=== PATIENT | female | born 1990 | race Caucasian/White ===

== ENCOUNTER → 2016-12-05 | Outpatient (CLI) | payer BC ==
[~2016-12-05] MED LIST: ACET500C PO; FOLITAB5 PO; IBUP-1022 PO; PREN1CAP9 PO; RANI15TA PO
--- NOTE | 2016-12-05 14:49 | REP ---
PELVIC SONOGRAPHY: HISTORY: Check IUD placement. Bicornuate uterus. FINDINGS: Transabdominal and transvaginal scanning are performed. Uterine dimensions are 7.1 x 3.7 x 4.7 cm. Endometrial echo on the right is 0.3 and on the left 0.4 cm. There is a tiny endometrial echogenic focus consistent with a calcification to the left of midline. No IUD is visible in the endometrium. There is a simple cyst in the right ovary measures 3.2 x 1.8 x 2.2 cm. Right ovary dimensions are 3.9 x 2.2 x 3.0 cm. Left ovary measures 3.7 x 1.1 x 1.3 cm. Normal Doppler flow is seen in both ovaries. IMPRESSION: 1. Bicornuate uterus. No IUD seen within it. 2. 3.2 cm simple cyst right ovary. 3. Trace amount of cul-de-sac fluid. Signed by James Manuel MD 12/05/2016 03:08 P
--- NOTE | 2016-12-05 14:57 | REP ---
KUB: Two views. History: Check for intrauterine device. Findings: Bowel gas pattern is normal. An IUD is visible tilted to the left of midline within the pelvis. This could not be seen on pelvic sonography. This raises the question of peritoneal IUD position. Consider CT study of the pelvis. No other abnormality. Signed by James Manuel MD 12/05/2016 03:08 P
== END ==
LOC: M SMT 09:04
PROVIDERS: ATTEND Advanced Practice Midwife
DX: Z30.431 Encounter for routine checking of intrauterine contraceptive device (principal); N83.201 Unspecified ovarian cyst, right side

== ENCOUNTER 2016-12-06 13:40 | Day surgery (SDC) | payer BC ==
[~2016-12-06 13:40] MED LIST changes: -FOLITAB5 PO
[2016-12-06] MEDS ORDERED: FOLITAB5 PO (14:16)
[2016-12-06 14:52] LABS: MEAN CORPUSCULAR HEMOGLOBIN 34.3 pg (27.0-33.0); MEAN CORPUSCULAR HGB CONC 34.9 g/dl (32.0-36.5); MEAN CORPUSCULAR VOLUME 98.2 fl (80.0-96.0); RED CELL DISTRIBUTION WIDTH 12.7 % (11.5-14.5); WHITE BLOOD COUNT 6.6 K/mm3 (4.0-10.0)
[2016-12-06 15:12] LABS: CONTROL LINE HCG INT CTR LINE PRESENT
[2016-12-06] MEDS ORDERED: NEOSTIGMINE 1MG/ML 5 ML SYRINGE (J2710) As Ordered ONE (16:20)
[2016-12-06] MEDS ORDERED: fentaNYL 100 MCG/2 ML INJECTION (J3010) As Ordered ONE (16:20)
[2016-12-06] MEDS ORDERED: MIDAZOLAM INJ 2 MG/2 ML VIAL (J2250) As Ordered ONE (16:20)
[2016-12-06] MEDS ORDERED: PROPOFOL 200 MG/20 ML VIAL As Ordered ONE (16:20)
[2016-12-06] MEDS ORDERED: LIDOCAINE 2% INJ 100 MG/5 ML SDV (FOR ANES.) As Ordered ONE (16:20)
[2016-12-06] MEDS ORDERED: GLYCOPYRROLATE INJ 0.2 MG/ML 2 ML VIAL As Ordered ONE (16:20)
[2016-12-06] MEDS ORDERED: ONDANSETRON 4MG/2ML VIAL (J2405) As Ordered ONE (16:20)
[2016-12-06] MEDS ORDERED: ROCURONIUM BROMIDE 50 MG/5 ML VIAL/SYRINGE As Ordered ONE (16:20)
[2016-12-06] MEDS ORDERED: BUPIVACAINE HCL 0.25% 30 ML VIAL As Ordered ONE (16:27)
[2016-12-06] MEDS ORDERED: SCOPOLAMINE 1.5 MG TRANSDERMAL As Ordered ONE (16:29)
[2016-12-06] MEDS ORDERED: SCOPOLAMINE 1.5 MG TRANSDERMAL TOP ONE (16:45)
[2016-12-06] MEDS ORDERED: LR 1,000 ML IV ONE ×2 (16:45)
[2016-12-06] MEDS ORDERED: dexameTHASONE 4 MG/ML 1ML VIAL (J1100) As Ordered ONE (17:51)
[2016-12-06] MEDS ORDERED: ONDANSETRON 4MG/2ML VIAL (J2405) IV PRN (18:15)
[2016-12-06] MEDS ORDERED: LR 1,000 ML IV SCH (18:15)
[2016-12-06] MEDS ORDERED: fentaNYL 100 MCG/2 ML INJECTION (J3010) IV PRN (18:15)
[2016-12-06] MEDS ORDERED: PERCOCET 5MG/325MG TAB PO PRN (18:15)
--- NOTE | 2016-12-06 18:21 | RO ---
DATE OF PROCEDURE: 12/06/2016 PREPROCEDURE DIAGNOSIS: Misplaced intrauterine device (IUD). POSTPROCEDURE DIAGNOSIS: Misplaced intrauterine device (IUD). PROCEDURE: Diagnostic operative laparoscopy with intraabdominal IUD removal. SURGEON: Selam Newton MD PLASTIC EXTRUDING MACHINE OPERATOR: Lee Guzmán DO ANESTHESIA: General endotracheal anesthesia. ESTIMATED BLOOD LOSS: 5 mL. INTRAVENOUS FLUIDS: 1200 mL of lactated Ringer's solution. URINE OUTPUT: 25 mL. OPERATIVE FINDINGS: IUD in the posterior cul-de-sac. Normal appearing bilateral adnexa. Uterus with normal exterior contour. DESCRIPTION OF PROCEDURE: After informed consent was obtained and written consent was reviewed, the patient was brought to the operating room where general endotracheal anesthesia was obtained. She was then placed in the lithotomy position and was prepped and draped in a normal sterile fashion. A time-out in the operating room was then performed, identifying the patient, procedure to be performed, as well as drug allergies. [place]out speculum was then placed revealing the cervix. The anterior lip of the cervix was grasped with a single-tooth tenaculum. A [place] tenaculum was then advanced through the cervical os for means to manipulate the uterus. A Gregory catheter was then placed and set to gravity. Speculum and single-tooth tenaculum was then removed, gloves were changed and attention was turned to the patient's abdomen where a 0.25% Marcaine was then infused in the infraumbilical region. An incision was made in this area, and a 5 mm trocar and sleeve was advanced through this incision. The laparoscope was then replaced revealing intraabdominal placement. A pneumoperitoneum was then obtained with CO2 gas. The abdomen was then surveyed with the above noted findings. There was normal pelvic anatomy to include the appendix, liver edge, the uterus and bilateral adnexa. The intrauterine device was identified in the posterior cul-de-sac. A second incision was then made 2 cm above the pubic symphysis in the midline. This area was infused with 0.25% Marcaine. Incision was made and the 5 mm trocar and sleeve was advanced through this incision under direct visualization. The IUD was then grasped and was removed without any difficulty through the port site. The area was inspected and noted to be hemostatic. The pneumoperitoneum was then released, trocars were removed. Both incisions were then closed with #4-0 Monocryl and was dressed with Dermabond. The Hulka tenaculum was then removed and tenaculum sites were inspected and noted to be hemostatic. Gregory catheter was removed and the patient was then taken out of the lithotomy position, was awakened from general anesthesia and taken to recovery in stable condition. Counts were correct.
[2016-12-06 19:45] VITALS: BP 120/70
== END 2016-12-06 20:10 | disposition home or self-care (01) ==
LOC: M SDC 13:40
PROVIDERS: ATTEND Obstetrics & Gynecology
DX: T83.39XA Other mechanical complication of intrauterine contraceptive device, initial encounter (principal)
CPT/HCPCS: 36415; 49329; 84703; 85027; 86850; 86900; 86901; J1100; J2250; J2405; J2710; J3010

== ENCOUNTER → 2017-03-27 | Outpatient (CLI) | payer BC ==
[~2017-03-27] MED LIST changes: +FOLITAB5 PO
== END ==
LOC: M SMT 11:13
PROVIDERS: ATTEND Advanced Practice Midwife
DX: O20.0 Threatened abortion (principal); Z3A.00 Weeks of gestation of pregnancy not specified
CPT/HCPCS: 36415; 86850; 86900; 86901; J2790

== ENCOUNTER → 2017-04-14 | Outpatient (CLI) | payer BC ==
[2017-04-14 17:52] LABS: MEAN CORPUSCULAR HEMOGLOBIN 32.6 pg (27.0-33.0); MEAN CORPUSCULAR HGB CONC 34.6 g/dl (32.0-36.5); MEAN CORPUSCULAR VOLUME 94.2 fl (80.0-96.0); PLATELET COUNT, AUTOMATED 287 10^3/uL (150-450); RED CELL DISTRIBUTION WIDTH 12.8 % (11.5-14.5); WHITE BLOOD COUNT 10.1 10^3/uL (4.0-10.0)
[2017-04-14 18:25] LABS: ALT/SGPT 31 U/L (12-78); AST/SGOT 24 U/L (7-37); BILIRUBIN,TOTAL 0.4 MG/DL (0.2-1.0); CREATININE FOR GFR 0.41 MG/DL (0.55-1.02); GLOMERULAR FILTRATION RATE > 60.0 (>60); URIC ACID 3.4 MG/DL (2.6-6.0)
== END ==
LOC: M SMT 12:40
DX: O30.042 Twin pregnancy, dichorionic/diamniotic, second trimester (principal)
CPT/HCPCS: 84460

== ENCOUNTER → 2017-07-12 | Outpatient (CLI) | payer BC ==
[2017-07-12 10:40] LABS: BASO % 0.4 % (0.0-1.0); EOS # 0.1 10^3/uL (0.0-0.50); EOS % 0.5 % (0.0-3.0); HEMATOCRIT 31.8 % (36.0-47.0); HEMOGLOBIN 10.5 g/dl (12.0-16.0); IMMATURE GRANULOCYTE % 0.8 % (0-3.0); LYMPH # 1.9 10^3/uL (1.5-6.5); LYMPH % 16.9 % (24.0-44.0); MEAN CORPUSCULAR HEMOGLOBIN 31.3 pg (27.0-33.0); MEAN CORPUSCULAR VOLUME 94.6 fl (80.0-96.0); MONO # 0.9 10^3/uL (0.0-0.8); MONO % 8.1 % (0.0-5.0); NEUTROPHILS # 8.2 10^3/uL (1.8-7.7); NEUTROPHILS % 73.3 % (36.0-66.0); PLATELET COUNT, AUTOMATED 242 10^3/uL (150-450); RED BLOOD COUNT 3.36 10^6/uL (4.00-5.40); RED CELL DISTRIBUTION WIDTH 12.7 % (11.5-14.5); WHITE BLOOD COUNT 11.2 10^3/uL (4.0-10.0)
[2017-07-12 11:13] LABS: GLUCOSE CHALLENGE TEST 1 HOUR 104 MG/DL (LESS THAN 140)
[2017-07-13 08:43] LABS: RH ONLY RHOGAM 1 1
== END ==
LOC: M SMT 08:09
DX: Z36.89 Encounter for other specified antenatal screening (principal); O30.042 Twin pregnancy, dichorionic/diamniotic, second trimester; Z3A.00 Weeks of gestation of pregnancy not specified
CPT/HCPCS: 82950

== ENCOUNTER → 2017-08-02 | Outpatient (CLI) | payer BC | LOC: M SMT 07:58 | DX: O30.043 Twin pregnancy, dichorionic/diamniotic, third trimester (principal) ==

== ENCOUNTER → 2017-08-23 | Outpatient (CLI) | payer BC | LOC: M SMT 08:58 | DX: O30.043 Twin pregnancy, dichorionic/diamniotic, third trimester (principal); Z3A.33 33 weeks gestation of pregnancy | CPT/HCPCS: 76815 ==

== ENCOUNTER → 2017-08-31 | Outpatient (REF) | payer BC | LOC: M LAB REF 13:27 | DX: O30.043 Twin pregnancy, dichorionic/diamniotic, third trimester (principal) | CPT/HCPCS: 87081 ==

== ENCOUNTER → 2017-09-04 | Outpatient (REF) | payer BC ==
[2017-09-04 19:11] LABS: TOTAL PROTEIN,RANDOM URINE 24.3 MG/DL (0.0-12.0)
== END ==
LOC: M LAB REF 17:12
DX: O30.043 Twin pregnancy, dichorionic/diamniotic, third trimester (principal)

== ENCOUNTER → 2017-09-04 | Outpatient (CLI) | payer BC ==
[2017-09-04 14:06] LABS: HEMOGLOBIN 10.1 g/dl (12.0-15.5); MEAN CORPUSCULAR HEMOGLOBIN 29.3 pg (27.0-33.0); MEAN CORPUSCULAR HGB CONC 32.6 g/dl (32.0-36.5); MEAN CORPUSCULAR VOLUME 89.9 fl (80.0-96.0); PLATELET COUNT, AUTOMATED 225 10^3/uL (150-450); RED BLOOD COUNT 3.45 10^6/uL (4.00-5.40); RED CELL DISTRIBUTION WIDTH 13.8 % (11.5-14.5); WHITE BLOOD COUNT 11.9 10^3/uL (4.0-10.0)
[2017-09-04 14:23] LABS: ALBUMIN 2.7 GM/DL (3.2-5.2); ALBUMIN/GLOBULIN RATIO 0.71 (1.00-1.93); ALKALINE PHOSPHATASE 122 U/L (45-117); ALT/SGPT 21 U/L (12-78); ANION GAP 10 MEQ/L (8-16); AST/SGOT 26 U/L (7-37); BILIRUBIN,TOTAL 0.3 MG/DL (0.2-1.0); BLOOD UREA NITROGEN 12 MG/DL (7-18); CALCIUM LEVEL 8.1 MG/DL (8.5-10.1); CARBON DIOXIDE LEVEL 23 MEQ/L (21-32); CHLORIDE LEVEL 107 MEQ/L (98-107); CREATININE FOR GFR 0.67 MG/DL (0.55-1.30); GLOMERULAR FILTRATION RATE > 60.0 (>60); GLUCOSE, FASTING 106 MG/DL (70-100); POTASSIUM SERUM 3.9 MEQ/L (3.5-5.1); SODIUM LEVEL 140 MEQ/L (136-145); TOTAL PROTEIN 6.5 GM/DL (6.4-8.2); URIC ACID 5.9 MG/DL (2.6-6.0)
== END ==
LOC: M SMT 13:09
DX: O30.043 Twin pregnancy, dichorionic/diamniotic, third trimester (principal)
CPT/HCPCS: 84550

== ENCOUNTER → 2017-09-07 | Outpatient (CLI) | payer BC | LOC: M SMT 08:51 | DX: O13.3 Gestational [pregnancy-induced] hypertension without significant proteinuria, third trimester (principal); O30.043 Twin pregnancy, dichorionic/diamniotic, third trimester ==

== ENCOUNTER → 2017-09-14 | Outpatient (CLI) | payer BC | LOC: M SMT 08:46 | DX: O13.3 Gestational [pregnancy-induced] hypertension without significant proteinuria, third trimester (principal); Z3A.36 36 weeks gestation of pregnancy; O30.043 Twin pregnancy, dichorionic/diamniotic, third trimester | CPT/HCPCS: 76819 ==

== ENCOUNTER 2017-09-18 12:41 | Inpatient (IN) | payer BC ==
[2017-09-18 14:31] LABS: HEMATOCRIT 30.6 % (36.0-47.0); HEMOGLOBIN 9.9 g/dl (12.0-15.5); MEAN CORPUSCULAR HEMOGLOBIN 28.4 pg (27.0-33.0); MEAN CORPUSCULAR HGB CONC 32.4 g/dl (32.0-36.5); MEAN CORPUSCULAR VOLUME 87.9 fl (80.0-96.0); PLATELET COUNT, AUTOMATED 222 10^3/uL (150-450); RED BLOOD COUNT 3.48 10^6/uL (4.00-5.40); RED CELL DISTRIBUTION WIDTH 14.6 % (11.5-14.5)
[2017-09-18 14:56] LABS: ALT/SGPT 20 U/L (12-78); AST/SGOT 28 U/L (7-37); BILIRUBIN,TOTAL 0.3 MG/DL (0.2-1.0); CREATININE FOR GFR 0.59 MG/DL (0.55-1.30); GLOMERULAR FILTRATION RATE > 60.0 (>60); LDH LACTATE DEHYDROGENASE 284 U/L (84-246); URIC ACID 5.8 MG/DL (2.6-6.0)
[2017-09-18] MEDS: LR 1,000 ML IV ×2 (14:58→20:46)
[2017-09-18] MEDS: OXYTOCIN DRIP 30 UNITS in APPROPRIATE DILUENT 1 EA IV ×2 (15:00→23:38)
[2017-09-18 15:02] LABS: TOTAL PROTEIN,RANDOM URINE 22.7 MG/DL (0.0-12.0)
[2017-09-18] MEDS ORDERED: FENTANYL 2MCG/ML ROPIVACAINE 0.2% IN 0.9% NACL 200ML IVBAG As Ordered (20:46)
[2017-09-18] MEDS: CALCIUM CARBONATE 500 MG CHEW U/D PO (20:46)
[2017-09-18] MEDS ORDERED: LACTATED RINGER'S 1000 ML IV (22:15)
[2017-09-18] MEDS ORDERED: NALOXONE INJ 0.4 MG/1 ML VIAL (J2310) IV (22:15)
[2017-09-18] MEDS ORDERED: ePHEDrine SULFATE 25 MG/5 ML(5MG/ML) SYRINGE IV (22:15)
[2017-09-18] MEDS ORDERED: ONDANSETRON 4MG/2ML VIAL (J2405) IV (22:15)
[2017-09-18] MEDS ORDERED: EPIDURAL COMMENT XX (22:15)
[2017-09-18] MEDS ORDERED: diphenhydrAMINE INJ 50MG/ML VIAL (J1200) IV (22:15)
[2017-09-18] MEDS ORDERED: FENTANYL/ROPIVACAINE/NACL BAG 200 ML EPIDURAL (22:15)
[2017-09-18] MEDS ORDERED: REFRIGERATOR IV KEYS XX (22:15)
[2017-09-18] MEDS ORDERED: EPIDURAL/PCA KEYS XX (22:15)
[2017-09-18] MEDS ORDERED: DIBUCAINE 1% OINTMENT 30GM TOP (23:45)
[2017-09-18] MEDS ORDERED: DOCUSATE SODIUM 100 MG CAP PO (23:45)
[2017-09-18] MEDS ORDERED: ANUSOL HC CREAM 30GM TOP (23:45)
[2017-09-18] MEDS ORDERED: MEASLES,MUMPS,RUBELLA VACCINE INJ (MMR-II) (90707) SC (23:45)
[2017-09-19] MEDS: PRENATAL VITAMINS CHEWABLE TABLET PO (08:08)
[2017-09-19 08:15] LABS: BEDSIDE GLUCOSE 47 MG/DL (70-105)
[2017-09-19 08:15] LABS: BEDSIDE GLUCOSE 51 MG/DL (70-105)
[2017-09-19 08:15] LABS: BEDSIDE GLUCOSE 64 MG/DL (70-105)
[2017-09-19] MEDS: ACETAMINOPHEN 500 MG TAB PO (13:49)
[2017-09-19 15:24] LABS: FETAL SCREEN PROF. 1 1
[2017-09-19] MEDS: RHOGAM 300 MCG (1500 IU) INJ (J2790) IM (15:33)
[2017-09-19] MEDS ORDERED: IBUPROFEN 800 MG TAB PO (22:00)
[2017-09-20] MEDS: PRENATAL VITAMINS CHEWABLE TABLET PO (08:23)
== END 2017-09-20 11:00 | disposition home or self-care (01) | DRG 560 ==
LOC: M LDI 12:41 → M OBS 09-19 02:42 → M LDI 13:02
PROVIDERS: Obstetrics & Gynecology
PROC: 10E0XZZ Delivery of Products of Conception, External Approach (ICD-10-PCS; principal; 2017-09-18)
PROC: 10E0XZZ Delivery of Products of Conception, External Approach (ICD-10-PCS; 2017-09-18)
PROC: 0HQ9XZZ Repair Perineum Skin, External Approach (ICD-10-PCS; 2017-09-18)
PROC: 3E033VJ Introduction of Other Hormone into Peripheral Vein, Percutaneous Approach (ICD-10-PCS; 2017-09-18)
DX: O13.4 Gestational [pregnancy-induced] hypertension without significant proteinuria, complicating childbirth (principal); Z37.2 Twins, both liveborn; O32.1XX0 Maternal care for breech presentation, not applicable or unspecified; Z3A.36 36 weeks gestation of pregnancy; O70.0 First degree perineal laceration during delivery; O43.199 Other malformation of placenta, unspecified trimester

== ENCOUNTER → 2018-05-08 | Outpatient (REF) | payer BC ==
[~2018-05-08] MED LIST changes: +ASPI1TAB PO; +COLA100C5 PO; +IBUP-1114 PO; +MAPA500T2 PO; +PRENTAB9 PO; +TUMS500C PO; +ZANTTAB PO; +ZYRT10CA PO
== END ==
LOC: M LAB REF 17:01
PROVIDERS: ATTEND Advanced Practice Midwife
DX: Z12.4 Encounter for screening for malignant neoplasm of cervix (principal)

== ENCOUNTER → 2018-12-07 | Outpatient (CLI) | payer BC ==
[~2018-12-07] MED LIST changes: -ASPI1TAB PO; +ASPI81TA26 PO; +ZANT150T40 PO; -ZANTTAB PO
--- NOTE | 2018-12-07 17:18 | REP ---
Pelvic ultrasound, stat request for displacement of IUD: The studies performed transabdominal, endovaginal and Doppler ultrasound assessment. The bladder is suboptimally demonstrated. The uterus is anteverted and normal size measuring 6.8 x 3.5 x 5.0 cm. The endometrium is not thickened measuring 4.6 mm. There is no IUD identified in the endometrial canal. On transverse images the uterus is bicornuate. Right ovary: The right ovary is normal size measuring 3.5 x 1.7 x 1.6 cm. There is no dominant mass or cyst. There is vascular flow with the Doppler resistive index of the parenchymal arteries measuring 0.44. Left ovary: Left ovary is normal size measuring 2.1 x 3 1 puff per centimeters. There is no dominant mass or cyst. There is vascular flow with the Doppler resistive index in the parenchymal arteries measuring 0.52. There is no free fluid in the pelvis. Impression: There is no IUD identified within the endometrial canal. The uterus is bicornuate. The ovaries are unremarkable. There is no free fluid in the pelvis. Electronically Signed by Odell Thomas MD 12/07/2018 05:09 P
--- NOTE | 2018-12-07 17:56 | REP ---
AP pelvis: Comparison is a supine AP abdomen dated 12/05/2016. There is an IUD to the right of midline. On the comparison supine abdomen study there was an IUD tilted to the left. Skeletal structures and soft tissues otherwise are unremarkable. The sacroiliac and right left hip articulations are unremarkable. Impression: There is an IUD to the right of midline. Otherwise, negative AP pelvis. Electronically Signed by Odell Thomas MD 12/07/2018 05:47 P
== END ==
LOC: M LAB 16:26
PROVIDERS: ATTEND Advanced Practice Midwife
DX: T83.32XA Displacement of intrauterine contraceptive device, initial encounter (principal)

== ENCOUNTER 2018-12-13 05:59 | Day surgery (SDC) | payer BC ==
[~2018-12-13] VITALS: Ht 165.1 cm; Wt 73.7 kg
[2018-12-13] MEDS ORDERED: LIDOCAINE 1% MDV 20ML VIAL SQ PRN (06:00)
[2018-12-13] MEDS ORDERED: LR 1,000 ML IV ONE (06:00)
[2018-12-13 06:28] LABS: HEMATOCRIT 39.6 % (36.0-47.0); HEMOGLOBIN 13.5 g/dl (12.0-15.5); MEAN CORPUSCULAR HEMOGLOBIN 32.5 pg (27.0-33.0); MEAN CORPUSCULAR HGB CONC 34.1 g/dl (32.0-36.5); MEAN CORPUSCULAR VOLUME 95.2 fl (80.0-96.0); PLATELET COUNT, AUTOMATED 288 10^3/uL (150-450); RED BLOOD COUNT 4.16 10^6/uL (4.00-5.40)
[2018-12-13] MEDS ORDERED: SCOPOLAMINE 1MG TRANSDERMAL PATCH As Ordered ONE (06:45)
[2018-12-13 06:50] LABS: HCG, SERUM QUALITATIVE NEGATIVE (NEGATIVE)
[2018-12-13] MEDS ORDERED: SCOPOLAMINE 1MG TRANSDERMAL PATCH TOP ONE (07:00)
[2018-12-13] MEDS ORDERED: BUPIVACAINE HCL 0.25% 10 ML VIAL As Ordered ONE (07:14)
[2018-12-13] MEDS ORDERED: SILVER NITRATE APPLICATOR As Ordered ONE (07:14)
[2018-12-13] MEDS ORDERED: ONDANSETRON 4MG/2ML VIAL (J2405) As Ordered ONE (07:55)
[2018-12-13] MEDS ORDERED: dexameTHASONE 4 MG/ML 1ML VIAL (J1100) As Ordered ONE (07:55)
[2018-12-13] MEDS ORDERED: MIDAZOLAM INJ 2 MG/2 ML VIAL (J2250) As Ordered ONE (07:55)
[2018-12-13] MEDS ORDERED: propofoL 200 MG/20 ML VIAL As Ordered ONE ×2 (07:55→11:19)
[2018-12-13] MEDS ORDERED: ROCURONIUM BROMIDE 50 MG/5 ML VIAL As Ordered ONE (07:55)
[2018-12-13] MEDS ORDERED: ACETAMINOPHEN 1000MG 100ML IV BTL (OFIRMEV) (J0131 PER 10MG) As Ordered ONE (07:55)
[2018-12-13] MEDS ORDERED: KETOROLAC 60 MG/2 ML VIAL (J1885) As Ordered ONE (07:55)
[2018-12-13] MEDS ORDERED: METOCLOPRAMIDE INJ 10MG/2ML VIAL (J2765) As Ordered ONE (07:55)
[2018-12-13] MEDS ORDERED: LIDOCAINE 2% INJ 100 MG/5 ML SDV (FOR ANES.) As Ordered ONE (07:55)
[2018-12-13] MEDS ORDERED: fentaNYL 250 MCG/5 ML INJECTION (J3010) As Ordered ONE (07:55)
[2018-12-13] MEDS ORDERED: SUGAMMADEX SODIUM 500 MG/5 ML VIAL (BRIDION) As Ordered ONE (07:58)
[2018-12-13] MEDS ORDERED: LIDOCAINE 2% JELLY 6 ML SYRINGE As Ordered ONE (09:07)
[2018-12-13] MEDS ORDERED: LR 1,000 ML IV SCH ×2 (09:15)
[2018-12-13] MEDS ORDERED: fentaNYL 100 MCG/2 ML INJECTION (J3010) IV PRN (09:15)
[2018-12-13] MEDS ORDERED: MEPERIDINE INJ 25 MG/ML VIAL (J2175) IV PRN (09:15)
[2018-12-13] MEDS ORDERED: METOCLOPRAMIDE INJ 10MG/2ML VIAL (J2765) IV PRN (09:15)
[2018-12-13] MEDS ORDERED: ONDANSETRON 4MG/2ML VIAL (J2405) IV PRN (09:15)
[2018-12-13 10:50] VITALS: BP 113/71
--- NOTE | 2018-12-14 09:03 | RO ---
DATE OF PROCEDURE: 12/13/2018 PREOPERATIVE DIAGNOSIS: Misplaced/intra-abdominal intrauterine device. POSTOPERATIVE DIAGNOSES: 1. Misplaced/intra-abdominal intrauterine device. 2. Normal appearing uterine contour and uterine cavity. PROCEDURE PERFORMED: 1. Operative laparoscopy with removal of intrauterine device. 2. Diagnostic hysteroscopy 3. Insertion of new intrauterine device. SURGEON: Dr. Lee Guzmán PROTECTIVE SERVICE SPECIALIST: Dr. Selam Nweton (essential role for tissue manipulation and surgical site exposure) ANESTHESIA: General endotracheal. SPECIMENS TO PATHOLOGY: Intact intrauterine device (IUD). ESTIMATED BLOOD LOSS: 5 mL. FLUIDS REPLACED: 1200 mL lactated Ringer's. DRAINS: Gregory catheter, 50 mL (removed at the conclusion of the case). COMPLICATIONS: None. ANTIBIOTICS: None indicated. The new Mirena IUD lot number was [id number] with an expiration of April 2021. INDICATION: The patient had been diagnosed with an intra-abdominal IUD, uncertain as to which time it was fully misplaced. The misplacement was confirmed with both ultrasound and abdominal x-ray. The patient is highly desirous of another intrauterine device, should her intrauterine cavity be found to be normal on laparoscopy and hysteroscopy. DESCRIPTION OF PROCEDURE: The patient was counseled and consented on the risks, benefits, indications, and alternatives of the procedure. Informed consent was obtained. She was taken to operating room with an IV running and placed on the operating table in the dorsal supine position. General anesthesia was administered and the airway secured without any difficulty. She was placed in the low lithotomy position. She was prepared and draped in the normal sterile fashion. A time out was performed per protocol. Attention was first turned to the pelvis. The Gregory catheter was placed under sterile conditions. Sterile speculum was placed into the vagina with good visualization of the cervix. The anterior lip of the cervix was grasped with a single-tooth tenaculum and downward traction was applied. The cervix was then sequentially dilated with Rafy dilators up to a #16. The ZUMI uterine manipulator was then placed without any difficulty. The single-tooth tenaculum was removed. A glove switch was performed. Attention was turned to the abdomen. 0.25% Marcaine was injected into the umbilicus and a 5 mm umbilical incision was made with the 11 blade. A Veress needle was placed into the intra-abdominal cavity. Intra-abdominal placement was confirmed with ease of flow of normal saline, a positive drop test and no return on aspiration. The opening pressure was 2 mmHg. The abdomen was insufflated with 2 liters of gas. The Veress needle was removed. The size 5 mm [place] laparoscopic trocar was placed directly into the intra-abdominal cavity without any incidental bleeding or injury. The patient was placed in steep Trendelenburg. A low midline suprapubic 5 mm incision was made with the 11 blade and a 5 mm [place] laparoscopic trocar was placed under direct visualization. Again, no incidental bleeding or injury was noted. An intra-abdominal survey was performed. The IUD was covered by omentum on the right side. The IUD was grasped and dislodged from the omentum without any difficulty. No omental bleeding was noted after removal of the IUD. The IUD was brought through the lower cannula without any difficulty and it was noted to be fully intact. It was sent to pathology for confirmation. The omentum was inspected and noted to be completely hemostatic. The uterine contour was inspected and noted to be round, no evidence of dual horn/bicornuate uterus. The gas was released from the abdomen. Attention was turned back to the pelvis. The ZUMI uterine manipulator was removed. A sterile speculum was placed with good visualization of the cervix. A single-tooth tenaculum was again applied to the anterior lip of the cervix and downward traction was applied. The hysteroscope was placed transcervically into the intrauterine cavity with the findings noted above. Given a normal intrauterine cavity, the decision was made to proceed with insertion of a new IUD. The hysteroscope was removed. The Mirena IUD was inserted under internal sales's guidelines. The uterus had been sounded to 7 cm with Pipelle. After placement of the IUD, the strings were cut 2-3 cm extending from the external os. A small laceration on the cervix was noted after the single-tooth tenaculum was removed. This was repaired with #0 Vicryl to achieve hemostasis. Excellent hemostasis was noted. All instruments were removed from the vagina. Another glove switch was performed. Attention was turned back to the abdomen. The abdomen was reinsufflated and for confirmation of correct placement I looked laparoscopically and did not see any evidence of uterine perforation nor an extrauterine IUD, indicating that the IUD was in fact intrauterine at the time of placement. The gas was then released from the abdomen. The cannulas were removed. The skin incisions were closed with #4-0 Monocryl in subcuticular fashion and reinforced with Dermabond. Attention was turned back to the vagina. Sterile speculum was placed with good visualization of the cervix and the IUD strings extending 2-3 cm beyond the os. The cervical laceration was noted to be hemostatic. All instruments were removed from the vagina. Sponge, lap, needle and instrument counts were correct per protocol. The patient was transferred to the postanesthesia care unit (PACU) back in good and stable condition. She tolerated the entire procedure very well. JANELLE
== END 2018-12-13 11:07 | disposition home or self-care (01) ==
LOC: M SDC 05:59
PROVIDERS: ATTEND Obstetrics & Gynecology
DX: T83.32XA Displacement of intrauterine contraceptive device, initial encounter (principal); Z91.030 Bee allergy status; Y76.8 Miscellaneous obstetric and gynecological devices associated with adverse incidents, not elsewhere classified
CPT/HCPCS: 36415; 49329; 58300; 58555; 84703; 85027; 86850; 86900; 86901; 88300; J0131; J1100; J1885; J2250; J2405; J2765; J3010

== ENCOUNTER → 2019-08-19 | Outpatient (CLI) | payer OTHER ==
[2019-08-21 00:10] LABS: HERPES ZOSTER, VARICELLA IgG 1327 index (Immune >165); HERPES ZOSTER, VARICELLA IgM <0.91 index (0.00-0.90)
== END ==
LOC: M PLALAB 07:55
PROVIDERS: ATTEND Physician Assistant
DX: R76.0 Raised antibody titer (principal)

== ENCOUNTER → 2019-08-19 | Outpatient (REF) | LOC: M PLALAB 08:02 | PROVIDERS: ATTEND Nurse Practitioner Adult Health | DX: Z00.00 Encounter for general adult medical examination without abnormal findings (principal) ==

== ENCOUNTER → 2020-01-21 | Outpatient (CLI) | payer OTHER ==
--- NOTE | 2020-01-27 14:38 | REP ---
BILATERAL MAMMOGRAM WITH 3D TOMOSYNTHESIS, DIAGNOSTIC MAMMOGRAM RIGHT BREAST, AND RIGHT BREAST ULTRASOUND HISTORY: Palpable lump right breast four days. Family history of breast cancer at age 55 in paternal grandmother. [facility] lifetime risk of breast cancer 19.7%. COMPARISON STUDY: None. TECHNIQUE: MLO and CC views of both breasts performed with 3D tomosynthesis. Additional spot compression views are performed of the upper outer quadrant of the right breast at the site of a palpable lump, which is marked on the skin. There is [id number] scattered heterogeneous fibroglandular tissue present. The pattern is fairly symmetrical. [place] breast density is B. No discrete mass or architectural distortion is seen. No clustered microcalcifications are seen. Real-time sonographic evaluation of the right breast is performed at the site of the palpable lump in the upper outer quadrant. There is no underlying cystic or solid nodule sonographically. IMPRESSION: ACR 1 negative. Baseline mammogram shows no mass or clustered microcalcifications. There is no mammography or sonographic evidence of a mass at the site of the reported palpable lump in the upper outer quadrant of the right breast. A negative mammogram and ultrasound should not detour biopsy if there is a clinically suspicious palpable mass present. Clinical correlation and follow-up are recommended. This mammogram was interpreted with the aid of an FDA approved computer-aided detection system. Patient states her last clinical breast exam was 01/2020. Patient letter: 2. JANELLE
== END ==
LOC: M WHC 15:36
PROVIDERS: ATTEND Advanced Practice Midwife
DX: N60.01 Solitary cyst of right breast (principal); Z12.31 Encounter for screening mammogram for malignant neoplasm of breast

== ENCOUNTER → 2021-02-02 | Outpatient (REF) | payer OTHER | LOC: M SFHCWAGY 13:26 | PROVIDERS: ATTEND Advanced Practice Midwife | DX: Z12.4 Encounter for screening for malignant neoplasm of cervix (principal) | CPT/HCPCS: 87624; G0123 ==

== ENCOUNTER → 2021-03-13 | Outpatient (REF) | LOC: M LABSMTC 09:52 | PROVIDERS: ATTEND Pediatrics | DX: Z11.52 Encounter for screening for COVID-19 (principal) ==

== ENCOUNTER → 2023-03-17 | Outpatient (REF) | LOC: M EMP 10:45 | PROVIDERS: ATTEND Family Medicine | DX: Z11.52 Encounter for screening for COVID-19 (principal) ==

== ENCOUNTER → 2023-12-04 | Outpatient (REF) | payer OTHER ==
[2023-12-07 13:54] LABS: HPV APTIMA Not Detected (Not Detected)
== END ==
LOC: M SFHCWAGY 10:17
PROVIDERS: ATTEND Advanced Practice Midwife
DX: Z12.4 Encounter for screening for malignant neoplasm of cervix (principal); Z77.9 Other contact with and (suspected) exposures hazardous to health
CPT/HCPCS: 87624; G0123

== ENCOUNTER → 2024-07-04 | Outpatient (REF) | payer OTHER | LOC: M PLALAB 08:42 | PROVIDERS: ATTEND Advanced Practice Midwife | DX: R30.0 Dysuria (principal) ==

== ENCOUNTER → 2025-01-28 | Outpatient (REF) | payer OTHER ==
[~2025-01-28] MED LIST changes: -IBUP-1022 PO; +IBUP600T42 PO
[2025-01-30 15:48] LABS: HPV APTIMA Not Detected (Not Detected)
== END ==
LOC: M SFHCWAGY 15:28
PROVIDERS: ATTEND Advanced Practice Midwife
DX: Z12.4 Encounter for screening for malignant neoplasm of cervix (principal)
CPT/HCPCS: 87624; G0123